=== PATIENT | male | born 1935 | race African-American/Black ===

== ENCOUNTER → 2018-02-02 | Outpatient (CLI) | payer MEDICARE, MEDICAID ==
[~2018-02-02] MED LIST: CLOP75TA33 PO; FOLI1TAB3 PO; LATA2.5D2 OP; LOSA1TAB40 PO; SIMV20TA6 PO; TIMO15DR12 OP
== END | disposition home or self-care (01) ==
LOC: US 08:04
PROVIDERS: ATTEND Specialist
DX: K76.0 Fatty (change of) liver, not elsewhere classified (principal); K80.20 Calculus of gallbladder without cholecystitis without obstruction; I12.9 Hypertensive chronic kidney disease with stage 1 through stage 4 chronic kidney disease, or unspecified chronic kidney disease; N18.2 Chronic kidney disease, stage 2 (mild); E78.5 Hyperlipidemia, unspecified
CPT/HCPCS: 76705

== ENCOUNTER → 2018-10-20 | Outpatient (CLI) | payer MEDICARE, MEDICAID | END | disposition home or self-care (01) | LOC: RAD 13:42 | PROVIDERS: ATTEND Specialist | DX: R06.02 Shortness of breath (principal) | CPT/HCPCS: 71046 ==

== ENCOUNTER 2019-02-25 07:17 | Inpatient (IN) | payer MEDICARE, MEDICAID ==
[~2019-02-25] VITALS: Ht 188 cm; Wt 78.0 kg
[2019-02-25] VITALS (36 sets, daily range): BP systolic 95–146; BP diastolic 35–71
[2019-02-25 10:50] LABS: BASOPHILS % 0.3 % (0.0-2.0); EOSINOPHILS % 0.8 % (0.0-5.0); HEMATOCRIT. 34.6 % (42.0-52.0); HEMOGLOBIN. 11.9 g/dL (14.0-18.0); LYMPHOCYTES % 19.1 % (20.0-50.0); MEAN CORPUSCULAR HEMOGLOBIN 36.5 pg (28.0-32.0); MEAN PLATELET VOLUME 10.1 fl (7.4-10.4); MONOCYTES % 13.7 % (2.0-8.0); NEUTROPHILS % 66.1 % (40.0-76.0); PLATELET 74 x1000/uL (130-400); RED BLOOD CELL COUNT 3.27 mill/uL (4.7-6.1); RED CELL DISTRIBUTION WIDTH 13.8 % (11.6-14.6)
[2019-02-25 10:56] LABS: INR 1.1
[2019-02-25 11:05] LABS: CHLORIDE 107 mEq/L (98-107)
[2019-02-25 11:09] LABS: CLARITY URINE CLEAR (CLEAR); COLOR URINE DARK YELLOW (YELLOW); KETONES URINE TRACE (NEGATIVE); LEUKOCYTE ESTERASE URINE TRACE (NEGATIVE); NITRITE URINE NEGATIVE (NEGATIVE); OCCULT BLOOD URINE NEGATIVE (NEGATIVE); PROTEIN URINE NEGATIVE (NEGATIVE); SPECIFIC GRAVITY URINE 1.015 (1.005-1.030)
[2019-02-25] MEDS ORDERED: NORMAL SALINE 0.9% 10 ML SYR ONE (11:38)
[2019-02-25] MEDS ORDERED: THROMBIN (BOVINE) 5000 UNITS/VIAL TOP ONE (11:38)
[2019-02-25] MEDS ORDERED: LACTATED RINGERS 3,000 ML IV ONE (11:38)
[2019-02-25] MEDS ORDERED: LIDOCAINE HCL/EPINEPHRINE 1%-EPI 1:100,000 20 ML VIAL ONE (11:38)
[2019-02-25] MEDS ORDERED: BACITRACIN 50,000 UNITS/VIAL ONE (11:38)
[2019-02-25] MEDS ORDERED: MANNITOL 12.5G (25%) VIAL 50ML IV ONE (11:45)
[2019-02-25] MEDS ORDERED: DEXT 5%/LACTATED RINGERS 1,000 ML IV SCH (11:45)
[2019-02-25] MEDS ORDERED: SODIUM CHLORIDE 0.9% 10ML VIAL ONE ×2 (11:58→13:07)
[2019-02-25] MEDS ORDERED: SUCCINYLCHOLINE CHLORIDE 200MG/10ML IV ONE (11:58)
[2019-02-25] MEDS ORDERED: LEVETIRACETAM 500MG PREMIX 100 ML IV SCH ×2 (12:00→17:00)
[2019-02-25] MEDS ORDERED: NICARDIPINE 100 MG in SODIUM CHLORIDE 0.9% 60 ML IV PRN ×4 (12:00)
[2019-02-25] MEDS: DEXAMETHASONE 4MG/ML 1ML VIAL IV SCH ×3 (12:00→23:20)
[2019-02-25] MEDS ORDERED: ROCURONIUM BROMIDE 10MG/ML VIAL 5ML IV ONE (12:00)
[2019-02-25] MEDS ORDERED: FENTANYL CITRATE/PF 50MCG/ML 2ML VIAL ONE (12:01)
[2019-02-25] MEDS ORDERED: MIDAZOLAM HCL 2 MG/2 ML VIAL ONE (12:01)
[2019-02-25] MEDS ORDERED: CEFAZOLIN SODIUM 1000MG/VIAL ONE (12:01)
[2019-02-25] MEDS ORDERED: FUROSEMIDE 40MG/4ML VIAL ONE (12:02)
[2019-02-25] MEDS ORDERED: BACITRACIN 15GM TUBE TOP ONE (12:02)
[2019-02-25] MEDS ORDERED: MANNITOL 20% 0 ML IV ONE (12:02)
[2019-02-25] MEDS ORDERED: ESMOLOL HCL 10MG/ML 10ML VIAL IV ONE (12:05)
[2019-02-25] MEDS ORDERED: POVIDONE-IODINE OINT 28.4GM TOP ONE (12:06)
[2019-02-25] MEDS ORDERED: PROPOFOL 200MG/20ML VIAL IV ONE ×2 (12:28→13:32)
[2019-02-25] MEDS ORDERED: ONDANSETRON HCL 4MG/2ML INJ ONE (13:06)
[2019-02-25] MEDS ORDERED: EPHEDRINE SULFATE 50MG/ML VIAL ONE (13:06)
[2019-02-25] MEDS ORDERED: PHENYLEPHRINE HCL 10 MG/ML 1ML (IV VIAL) IV ONE (13:07)
[2019-02-25] MEDS ORDERED: NEOSTIGMINE METHYLSULFATE 1MG/ML 10 ML VIAL ONE (13:46)
[2019-02-25] MEDS ORDERED: GLYCOPYRROLATE 0.2 MG/ML 2ML VIAL ONE (13:46)
[2019-02-25] MEDS: DEXT 5%/LACTATED RINGERS 1,000 ML IV SCH (15:03)
[2019-02-25] MEDS: NICARDIPINE 100 MG in SODIUM CHLORIDE 0.9% 60 ML IV PRN (15:04)
[2019-02-25] MEDS: LEVETIRACETAM 500 MG in SODIUM CHLORIDE 0.9% 100 ML IV SCH (20:01)
[2019-02-25] MEDS: CEFAZOLIN 1000MG PREMIX 50 ML IV SCH (21:07)
[2019-02-25] MEDS ORDERED: CEFAZOLIN SODIUM 1000MG/VIAL IV SCH (22:00)
[2019-02-26] VITALS (117 sets, daily range): BP systolic 85–148; BP diastolic 32–96
[2019-02-26] MEDS: CEFAZOLIN 1000MG PREMIX 50 ML IV SCH ×3 (05:50→21:53)
[2019-02-26] MEDS: DEXAMETHASONE 4MG/ML 1ML VIAL IV SCH ×2 (05:52→12:24)
[2019-02-26] MEDS: LEVETIRACETAM 500 MG in SODIUM CHLORIDE 0.9% 100 ML IV SCH (08:11)
[2019-02-26] MEDS: MORPHINE SULFATE 2 MG/ML CPJ (NOT FOR IM USE) IV PRN ×2 (08:12→15:43)
[2019-02-26] MEDS: AMLODIPINE 2.5MG TABLET PO SCH ×2 (09:00→20:30)
[2019-02-26] MEDS ORDERED: BACITRACIN 15GM TUBE TOP ONE (11:45)
[2019-02-26] MEDS: NICARDIPINE 100 MG in SODIUM CHLORIDE 0.9% 60 ML IV PRN (18:57)
[2019-02-26] MEDS: FAMOTIDINE 20MG/2ML VIAL IV SCH (18:57)
[2019-02-26 19:22] LABS: HEMATOCRIT. 37.2 % (42.0-52.0); HEMOGLOBIN. 12.6 g/dL (14.0-18.0); MEAN CORPUSCULAR HEMOGLOBIN 35.9 pg (28.0-32.0); MEAN CORPUSCULAR VOLUME 106.4 fL (80.0-94.0); MEAN PLATELET VOLUME 10.7 fl (7.4-10.4); PLATELET 79 x1000/uL (130-400); RED BLOOD CELL COUNT 3.49 mill/uL (4.7-6.1)
[2019-02-26 19:30] LABS: CHLORIDE 112 mEq/L (98-107)
[2019-02-26 20:06] LABS: PLATELET ESTIMATE DECREASED
[2019-02-26] MEDS: LEVETIRACETAM 750 MG in SODIUM CHLORIDE 0.9% 100 ML IV SCH (20:30)
[2019-02-27] VITALS (93 sets, daily range): BP systolic 72–146; BP diastolic 14–106
[2019-02-27 05:00] LABS: HEMATOCRIT. 37.7 % (42.0-52.0); HEMOGLOBIN. 12.6 g/dL (14.0-18.0); MEAN CORPUSCULAR HEMOGLOBIN 35.8 pg (28.0-32.0); MEAN CORPUSCULAR VOLUME 106.8 fL (80.0-94.0); MEAN PLATELET VOLUME 9.7 fl (7.4-10.4); PLATELET 111 x1000/uL (130-400); RED BLOOD CELL COUNT 3.53 mill/uL (4.7-6.1); RED CELL DISTRIBUTION WIDTH 13.9 % (11.6-14.6)
[2019-02-27 05:07] LABS: CHLORIDE 115 mEq/L (98-107)
[2019-02-27] MEDS: CEFAZOLIN 1000MG PREMIX 50 ML IV SCH ×3 (05:46→22:53)
[2019-02-27] MEDS: DEXT 5%/LACTATED RINGERS 1,000 ML IV SCH (05:47)
[2019-02-27] MEDS: NICARDIPINE 100 MG in SODIUM CHLORIDE 0.9% 60 ML IV PRN (05:47)
[2019-02-27 07:18] LABS: PLATELET ESTIMATE SLIGHTLY DECREASED
[2019-02-27] MEDS: AMLODIPINE 2.5MG TABLET PO SCH ×2 (08:42→20:46)
[2019-02-27] MEDS: FAMOTIDINE 20MG/2ML VIAL IV SCH (09:06)
[2019-02-27] MEDS: LEVETIRACETAM 750 MG in SODIUM CHLORIDE 0.9% 100 ML IV SCH ×2 (09:07→20:45)
[2019-02-27] MEDS ORDERED: CYAN50003 PO (09:48)
[2019-02-27] MEDS ORDERED: PROP15DR56 OP (09:48)
[2019-02-27] MEDS ORDERED: ASCO-339 PO (09:48)
[2019-02-27] MEDS ORDERED: ASPI-1158 PO (09:48)
[2019-02-27] MEDS ORDERED: CALC-1121 PO (09:48)
[2019-02-27] MEDS ORDERED: MAGN200T4 PO (09:48)
[2019-02-27] MEDS ORDERED: POTA-79 PO (09:48)
[2019-02-27] MEDS ORDERED: FURO40TA5 PO (09:48)
[2019-02-27] MEDS: METOPROLOL TARTRATE 25MG TABLET PO SCH ×2 (10:00→20:46)
[2019-02-27] MEDS: MORPHINE SULFATE 2 MG/ML CPJ (NOT FOR IM USE) IV PRN ×2 (11:34→15:46)
[2019-02-27] MEDS: DIPHENHYDRAMINE 50MG/ML VIAL IV PRN (16:39)
[2019-02-28] VITALS (93 sets, daily range): BP systolic 84–143; BP diastolic 40–102
[2019-02-28] MEDS: NICARDIPINE 100 MG in SODIUM CHLORIDE 0.9% 60 ML IV PRN (01:32)
[2019-02-28] MEDS: MORPHINE SULFATE 2 MG/ML CPJ (NOT FOR IM USE) IV PRN ×3 (02:35→18:10)
[2019-02-28 04:46] LABS: BASOPHILS % 0.1 % (0.0-2.0); HEMATOCRIT. 37.2 % (42.0-52.0); HEMOGLOBIN. 12.5 g/dL (14.0-18.0); LYMPHOCYTES % 9.9 % (20.0-50.0); MEAN CORPUSCULAR HEMOGLOBIN 35.6 pg (28.0-32.0); MEAN CORPUSCULAR VOLUME 106.6 fL (80.0-94.0); MEAN PLATELET VOLUME 9.2 fl (7.4-10.4); MONOCYTES % 9.1 % (2.0-8.0); NEUTROPHILS % 80.9 % (40.0-76.0); PLATELET 100 x1000/uL (130-400); RED BLOOD CELL COUNT 3.49 mill/uL (4.7-6.1); RED CELL DISTRIBUTION WIDTH 13.8 % (11.6-14.6)
[2019-02-28 04:58] LABS: CHLORIDE 118 mEq/L (98-107)
[2019-02-28 05:08] LABS: PHOSPHORUS 2.2 mg/dL (2.5-4.9)
[2019-02-28] MEDS: DEXT 5%/LACTATED RINGERS 1,000 ML IV SCH (06:39)
[2019-02-28] MEDS: LEVETIRACETAM 750 MG in SODIUM CHLORIDE 0.9% 100 ML IV SCH ×2 (09:43→21:45)
[2019-02-28] MEDS: AMLODIPINE 2.5MG TABLET PO SCH ×2 (10:27→21:45)
[2019-02-28] MEDS: METOPROLOL TARTRATE 25MG TABLET PO SCH ×2 (10:27→21:45)
[2019-02-28] MEDS: FAMOTIDINE 20MG/2ML VIAL IV SCH (10:27)
[2019-02-28] MEDS ORDERED: POTASSIUM CHLORIDE 20MEQ/PACKET PO NR (10:45)
[2019-02-28] MEDS ORDERED: ONDANSETRON HCL 4MG/2ML INJ IV PRN ×2 (20:45→23:30)
[2019-02-28 22:47] LABS: CHLORIDE 120 mEq/L (98-107)
[2019-02-28 23:04] LABS: HEMATOCRIT. 39.3 % (42.0-52.0); HEMOGLOBIN. 13.4 g/dL (14.0-18.0); MEAN CORPUSCULAR HEMOGLOBIN 35.7 pg (28.0-32.0); MEAN CORPUSCULAR VOLUME 104.8 fL (80.0-94.0); MEAN PLATELET VOLUME 8.8 fl (7.4-10.4); PLATELET 106 x1000/uL (130-400); RED BLOOD CELL COUNT 3.75 mill/uL (4.7-6.1); RED CELL DISTRIBUTION WIDTH 13.8 % (11.6-14.6)
[2019-02-28 23:16] LABS: PLATELET ESTIMATE DECREASED
[2019-03-01] VITALS (92 sets, daily range): BP systolic 66–175; BP diastolic 25–90
[2019-03-01] MEDS: MORPHINE SULFATE 2 MG/ML CPJ (NOT FOR IM USE) IV PRN ×3 (00:08→13:10)
[2019-03-01] MEDS: NICARDIPINE 100 MG in SODIUM CHLORIDE 0.9% 60 ML IV PRN (03:49)
[2019-03-01 04:41] LABS: BASOPHILS % 0.1 % (0.0-2.0); HEMATOCRIT. 36.9 % (42.0-52.0); HEMOGLOBIN. 12.7 g/dL (14.0-18.0); LYMPHOCYTES % 7.5 % (20.0-50.0); MEAN CORPUSCULAR HEMOGLOBIN 35.8 pg (28.0-32.0); MEAN CORPUSCULAR VOLUME 104.3 fL (80.0-94.0); MEAN PLATELET VOLUME 8.7 fl (7.4-10.4); MONOCYTES % 12.1 % (2.0-8.0); NEUTROPHILS % 80.3 % (40.0-76.0); PLATELET 91 x1000/uL (130-400); RED BLOOD CELL COUNT 3.54 mill/uL (4.7-6.1); RED CELL DISTRIBUTION WIDTH 13.6 % (11.6-14.6)
[2019-03-01 04:49] LABS: CHLORIDE 119 mEq/L (98-107)
[2019-03-01] MEDS: FAMOTIDINE 20MG/2ML VIAL IV SCH (08:40)
[2019-03-01] MEDS: DEXT 5%/LACTATED RINGERS 1,000 ML IV SCH ×2 (08:40→22:53)
[2019-03-01] MEDS: AMLODIPINE 2.5MG TABLET PO SCH ×2 (09:00→21:00)
[2019-03-01] MEDS ORDERED: SODIUM CHLORIDE 0.9% IV SCH (09:00)
[2019-03-01] MEDS ORDERED: LEVETIRACETAM IV SCH (09:00)
[2019-03-01] MEDS: METOPROLOL TARTRATE 25MG TABLET PO SCH ×2 (09:00→21:00)
[2019-03-01 10:14] LABS: PHOSPHORUS 2.3 mg/dL (2.5-4.9)
[2019-03-01 17:45] LABS: CLARITY URINE TURBID (CLEAR); COLOR URINE RED (YELLOW); KETONES URINE 2+ (NEGATIVE); LEUKOCYTE ESTERASE URINE 3+ (NEGATIVE); NITRITE URINE POSITIVE (NEGATIVE); OCCULT BLOOD URINE 3+ (NEGATIVE); PROTEIN URINE 3+ (NEGATIVE); SPECIFIC GRAVITY URINE 1.016 (1.005-1.030)
[2019-03-02] VITALS (92 sets, daily range): BP systolic 103–145; BP diastolic 37–95
[2019-03-02 05:10] LABS: BASOPHILS % 0.1 % (0.0-2.0); EOSINOPHILS % 0.2 % (0.0-5.0); HEMATOCRIT. 34.2 % (42.0-52.0); HEMOGLOBIN. 11.6 g/dL (14.0-18.0); LYMPHOCYTES % 8.9 % (20.0-50.0); MEAN CORPUSCULAR HEMOGLOBIN 35.7 pg (28.0-32.0); MEAN CORPUSCULAR VOLUME 105.2 fL (80.0-94.0); MEAN PLATELET VOLUME 9.5 fl (7.4-10.4); MONOCYTES % 10.4 % (2.0-8.0); NEUTROPHILS % 80.4 % (40.0-76.0); PLATELET 86 x1000/uL (130-400); RED BLOOD CELL COUNT 3.25 mill/uL (4.7-6.1); RED CELL DISTRIBUTION WIDTH 13.5 % (11.6-14.6)
[2019-03-02 05:25] LABS: PHOSPHORUS 2.4 mg/dL (2.5-4.9)
[2019-03-02] MEDS: NICARDIPINE 100 MG in SODIUM CHLORIDE 0.9% 60 ML IV PRN ×2 (05:41→17:17)
[2019-03-02 05:46] LABS: CHLORIDE 124 mEq/L (98-107)
[2019-03-02] MEDS ORDERED: DIATR MEGLU/DIATRIZOATE SOLN 30ML PO SCH (07:30)
[2019-03-02] MEDS: DEXT 5%/0.45% NACL 1000ML 1,000 ML IV SCH (08:18)
[2019-03-02] MEDS ORDERED: POTASSIUM PHOS,M-BASIC-D-BASIC 10 MMOL in DEXT 5% WATER 246.6667 ML IV SCH (09:00)
[2019-03-02] MEDS ORDERED: LIDOCAINE HCL 2% JELLY 5ML MM NR (09:00)
[2019-03-02] MEDS: FAMOTIDINE 20MG/2ML VIAL IV SCH (09:22)
[2019-03-02] MEDS: MORPHINE SULFATE 2 MG/ML CPJ (NOT FOR IM USE) IV PRN (13:11)
[2019-03-02 23:35] LABS: CHLORIDE 123 mEq/L (98-107)
[2019-03-03] VITALS (94 sets, daily range): BP systolic 97–147; BP diastolic 24–120
[2019-03-03 04:38] LABS: BASOPHILS % 0.2 % (0.0-2.0); EOSINOPHILS % 0.6 % (0.0-5.0); HEMATOCRIT. 32.5 % (42.0-52.0); HEMOGLOBIN. 11.2 g/dL (14.0-18.0); LYMPHOCYTES % 8.3 % (20.0-50.0); MEAN CORPUSCULAR HEMOGLOBIN 36.2 pg (28.0-32.0); MEAN CORPUSCULAR VOLUME 104.7 fL (80.0-94.0); MEAN PLATELET VOLUME 9.7 fl (7.4-10.4); MONOCYTES % 8.5 % (2.0-8.0); NEUTROPHILS % 82.4 % (40.0-76.0); PLATELET 96 x1000/uL (130-400); RED BLOOD CELL COUNT 3.11 mill/uL (4.7-6.1); RED CELL DISTRIBUTION WIDTH 13.7 % (11.6-14.6)
[2019-03-03 04:57] LABS: PHOSPHORUS 2.6 mg/dL (2.5-4.9)
[2019-03-03 05:06] LABS: CHLORIDE 122 mEq/L (98-107)
[2019-03-03] MEDS: DEXT 5%/0.45% NACL 1000ML 1,000 ML IV SCH ×2 (05:22→22:11)
[2019-03-03] MEDS: FAMOTIDINE 20MG/2ML VIAL IV SCH (09:18)
[2019-03-03] MEDS ORDERED: KCL 20MEQ/100ML PREMIX 100 ML IV NR (10:00)
[2019-03-03] MEDS ORDERED: BISACODYL 10MG SUPP PR PRN (12:15)
[2019-03-03] MEDS: NICARDIPINE 100 MG in SODIUM CHLORIDE 0.9% 60 ML IV PRN (15:19)
[2019-03-03] MEDS ORDERED: POTASSIUM CHLORIDE 20MEQ/PACKET NG NR (16:00)
[2019-03-03] MEDS ORDERED: KCL 20MEQ/100ML PREMIX 100 ML IV SCH (18:00)
[2019-03-03] MEDS: METOCLOPRAMIDE HCL 10MG/2ML VIAL IV SCH ×2 (18:06→23:10)
[2019-03-04] VITALS (85 sets, daily range): BP systolic 99–171; BP diastolic 31–129
[2019-03-04] MEDS: MORPHINE SULFATE 2 MG/ML CPJ (NOT FOR IM USE) IV PRN ×2 (01:19→13:39)
[2019-03-04] MEDS: METOCLOPRAMIDE HCL 10MG/2ML VIAL IV SCH ×3 (05:09→18:55)
[2019-03-04 08:20] LABS: BASOPHILS % 0.2 % (0.0-2.0); EOSINOPHILS % 0.6 % (0.0-5.0); HEMATOCRIT. 34.6 % (42.0-52.0); HEMOGLOBIN. 11.7 g/dL (14.0-18.0); LYMPHOCYTES % 7.7 % (20.0-50.0); MEAN CORPUSCULAR HEMOGLOBIN 35.3 pg (28.0-32.0); MEAN CORPUSCULAR VOLUME 104.6 fL (80.0-94.0); MEAN PLATELET VOLUME 9.4 fl (7.4-10.4); MONOCYTES % 9.9 % (2.0-8.0); NEUTROPHILS % 81.6 % (40.0-76.0); PLATELET 95 x1000/uL (130-400); RED BLOOD CELL COUNT 3.31 mill/uL (4.7-6.1)
[2019-03-04 08:31] LABS: CHLORIDE 123 mEq/L (98-107)
[2019-03-04 08:41] LABS: PHOSPHORUS 2.7 mg/dL (2.5-4.9)
[2019-03-04] MEDS: FAMOTIDINE 20MG/2ML VIAL IV SCH (08:53)
[2019-03-04] MEDS ORDERED: KCL 20MEQ/100ML PREMIX 100 ML IV NR (10:00)
[2019-03-04] MEDS ORDERED: LIDOCAINE HCL 1% 20ML VIAL (Pyxis) INJ ONE (12:33)
[2019-03-04] MEDS ORDERED: SODIUM BICARBONATE 4% (2.4MEQ) 5ML VIAL IV ONE (12:34)
[2019-03-04] MEDS: DEXT 5%/0.45% NACL 1000ML 1,000 ML IV SCH (15:26)
[2019-03-04] MEDS: NICARDIPINE 100 MG in SODIUM CHLORIDE 0.9% 60 ML IV PRN (16:43)
[2019-03-04] MEDS ORDERED: KCL 20MEQ/100ML PREMIX 100 ML IV ONE (18:00)
[2019-03-05] VITALS (97 sets, daily range): BP systolic 67–183; BP diastolic 38–96
[2019-03-05] MEDS: METOCLOPRAMIDE HCL 10MG/2ML VIAL IV SCH ×5 (00:15→23:51)
[2019-03-05] MEDS: NICARDIPINE 100 MG in SODIUM CHLORIDE 0.9% 60 ML IV PRN ×2 (02:06→11:35)
[2019-03-05] MEDS: DEXT 5%/0.45% NACL 1000ML 1,000 ML IV SCH ×2 (03:15→23:51)
[2019-03-05 05:11] LABS: CHLORIDE 121 mEq/L (98-107)
[2019-03-05] MEDS: FAMOTIDINE 20MG/2ML VIAL IV SCH (09:47)
[2019-03-05 10:10] LABS: BASOPHILS % 0.1 % (0.0-2.0); HEMATOCRIT. 32.4 % (42.0-52.0); LYMPHOCYTES % 7.9 % (20.0-50.0); MEAN CORPUSCULAR VOLUME 103.3 fL (80.0-94.0); MEAN PLATELET VOLUME 8.9 fl (7.4-10.4); MONOCYTES % 9.2 % (2.0-8.0); NEUTROPHILS % 81.8 % (40.0-76.0); PLATELET 94 x1000/uL (130-400); RED BLOOD CELL COUNT 3.13 mill/uL (4.7-6.1); RED CELL DISTRIBUTION WIDTH 14.2 % (11.6-14.6)
[2019-03-05] MEDS ORDERED: CLONIDINE HCL 0.1MG/24HR PATCH TD SCH (11:00)
[2019-03-05] MEDS ORDERED: ONDANSETRON INJ 8 MG in DEXTROSE 5% WATER 50 ML IV PRN (11:30)
[2019-03-06] VITALS (92 sets, daily range): BP systolic 91–146; BP diastolic 56–109
[2019-03-06] MEDS: NICARDIPINE 100 MG in SODIUM CHLORIDE 0.9% 60 ML IV PRN (04:40)
[2019-03-06 04:41] LABS: BASOPHILS % 0.3 % (0.0-2.0); EOSINOPHILS % 1.2 % (0.0-5.0); HEMATOCRIT. 32.3 % (42.0-52.0); HEMOGLOBIN. 11.1 g/dL (14.0-18.0); LYMPHOCYTES % 10.7 % (20.0-50.0); MEAN CORPUSCULAR HEMOGLOBIN 35.5 pg (28.0-32.0); MEAN CORPUSCULAR VOLUME 103.2 fL (80.0-94.0); MEAN PLATELET VOLUME 10.3 fl (7.4-10.4); MONOCYTES % 9.6 % (2.0-8.0); NEUTROPHILS % 78.2 % (40.0-76.0); PLATELET 67 x1000/uL (130-400); RED BLOOD CELL COUNT 3.13 mill/uL (4.7-6.1); RED CELL DISTRIBUTION WIDTH 14.1 % (11.6-14.6)
[2019-03-06] MEDS: METOCLOPRAMIDE HCL 10MG/2ML VIAL IV SCH ×4 (05:58→23:48)
[2019-03-06 06:29] LABS: CHLORIDE 120 mEq/L (98-107)
[2019-03-06] MEDS: FAMOTIDINE 20MG/2ML VIAL IV SCH (08:38)
[2019-03-06] MEDS ORDERED: KCL 20MEQ/100ML PREMIX 100 ML IV SCH (11:00)
[2019-03-06] MEDS: DEXT 5%/0.45% NACL 1000ML 1,000 ML IV SCH (15:07)
[2019-03-06] MEDS ORDERED: BLOOD SUGAR DIAGNOSTIC STRIP TEST SCH (18:00)
[2019-03-06] MEDS ORDERED: TOTAL PARENTERAL NUTRITION 1,300 ML IV SCH (21:00)
[2019-03-06] MEDS: BLOOD SUGAR DIAGNOSTIC STRIP TEST SCH (23:47)
[2019-03-06] MEDS: INSULIN LISPRO 100 UNITS/ML SUBCUT SCH (23:48)
[2019-03-07] VITALS (98 sets, daily range): BP systolic 63–162; BP diastolic 25–127
[2019-03-07] MEDS ORDERED: DEXTROSE 50% WATER 50ML SYRINGE IV PRN
[2019-03-07] MEDS: DEXT 5%/0.45% NACL 1000ML 1,000 ML IV SCH (04:07)
[2019-03-07 04:49] LABS: BASOPHILS % 0.2 % (0.0-2.0); EOSINOPHILS % 1.1 % (0.0-5.0); HEMATOCRIT. 33.5 % (42.0-52.0); HEMOGLOBIN. 11.3 g/dL (14.0-18.0); LYMPHOCYTES % 8.2 % (20.0-50.0); MEAN CORPUSCULAR VOLUME 103.3 fL (80.0-94.0); MEAN PLATELET VOLUME 9.8 fl (7.4-10.4); MONOCYTES % 10.3 % (2.0-8.0); NEUTROPHILS % 80.2 % (40.0-76.0); PLATELET 94 x1000/uL (130-400); RED BLOOD CELL COUNT 3.24 mill/uL (4.7-6.1); RED CELL DISTRIBUTION WIDTH 13.8 % (11.6-14.6)
[2019-03-07 05:01] LABS: CHLORIDE 116 mEq/L (98-107)
[2019-03-07 05:09] LABS: PHOSPHORUS 1.9 mg/dL (2.5-4.9)
[2019-03-07] MEDS: INSULIN LISPRO 100 UNITS/ML SUBCUT SCH ×4 (06:00→23:42)
[2019-03-07] MEDS: BLOOD SUGAR DIAGNOSTIC STRIP TEST SCH ×4 (06:00→23:42)
[2019-03-07] MEDS: METOCLOPRAMIDE HCL 10MG/2ML VIAL IV SCH ×4 (07:05→23:42)
[2019-03-07] MEDS: NICARDIPINE 100 MG in SODIUM CHLORIDE 0.9% 60 ML IV PRN ×2 (07:10→17:52)
[2019-03-07] MEDS ORDERED: PHYTONADIONE 10MG/ML AMP SUBCUT SCH (09:00)
[2019-03-07] MEDS: FAMOTIDINE 20MG/2ML VIAL IV SCH (09:07)
[2019-03-07] MEDS ORDERED: KCL 20MEQ/100ML PREMIX 100 ML IV NR (13:00)
[2019-03-07] MEDS ORDERED: TOTAL PARENTERAL NUTRITION 1,700 ML IV SCH (21:00)
[2019-03-07] MEDS: FAT EMULSIONS 500 ML IV SCH (21:05)
[2019-03-08] VITALS (95 sets, daily range): BP systolic 53–178; BP diastolic 31–88
[2019-03-08] MEDS: NICARDIPINE 100 MG in SODIUM CHLORIDE 0.9% 60 ML IV PRN ×2 (03:13→23:14)
[2019-03-08] MEDS: METOCLOPRAMIDE HCL 10MG/2ML VIAL IV SCH ×4 (06:12→23:11)
[2019-03-08] MEDS: BLOOD SUGAR DIAGNOSTIC STRIP TEST SCH ×4 (06:13→23:14)
[2019-03-08] MEDS: INSULIN LISPRO 100 UNITS/ML SUBCUT SCH ×4 (06:13→23:14)
[2019-03-08] MEDS ORDERED: CARVEDILOL 3.125 MG TABLET PO SCH (09:00)
[2019-03-08] MEDS: METOPROLOL TARTRATE 25MG TABLET PO SCH ×3 (09:15→20:11)
[2019-03-08 09:26] LABS: BG BASE EXCESS -2.2 mmol/L (-2.0-2.0); BG CARBOXYHEMOGLOBIN 0.3 % (0.5-1.5); BG DEOXYHEMOGLOBIN 11.9 % (0.0-5.0); BG FRACTION INSPIRED OXYGEN 32; BG HCO3 ACT 20.5 mmol/L (22.0-26.0); BG METHEMOGLOBIN 0.3 % (0.0-1.5); BG OXYHEMOGLOBIN 87.5 % (94.0-97.0); BG PCO2 28.4 mmHg (35.0-45.0); BG PH 7.476 (7.350-7.450); BG PO2 56.1 mmHg (75.0-100.0); BG SAMPLE SITE RIGHT RADIAL; BG TOTAL HEMOGLOBIN 10.5 g/dL (12.0-18.0); BG VENT MODE NASAL CANNULA
[2019-03-08 11:12] LABS: BG CARBOXYHEMOGLOBIN 0.3 % (0.5-1.5); BG FRACTION INSPIRED OXYGEN 36; BG METHEMOGLOBIN 0.2 % (0.0-1.5); BG OXYGEN SATURATION 89.9 % (92.0-98.5); BG OXYHEMOGLOBIN 89.5 % (94.0-97.0); BG PCO2 32.2 mmHg (35.0-45.0); BG PO2 57.8 mmHg (75.0-100.0); BG SAMPLE SITE RIGHT RADIAL; BG TOTAL HEMOGLOBIN 10.4 g/dL (12.0-18.0); BG VENT MODE NASAL CANNULA
[2019-03-08] MEDS ORDERED: POTASSIUM CHLORIDE 20MEQ/PACKET PO NR (11:45)
[2019-03-08] MEDS: FAMOTIDINE 20MG/2ML VIAL IV SCH (13:07)
[2019-03-08 13:33] LABS: CHLORIDE 118 mEq/L (98-107)
[2019-03-08 13:46] LABS: HEMATOCRIT. 30.9 % (42.0-52.0); HEMOGLOBIN. 10.5 g/dL (14.0-18.0); MEAN CORPUSCULAR HEMOGLOBIN 34.9 pg (28.0-32.0); MEAN CORPUSCULAR VOLUME 102.7 fL (80.0-94.0); MEAN PLATELET VOLUME 10.8 fl (7.4-10.4); PLATELET 67 x1000/uL (130-400); RED BLOOD CELL COUNT 3.01 mill/uL (4.7-6.1); RED CELL DISTRIBUTION WIDTH 13.8 % (11.6-14.6)
[2019-03-08 14:02] LABS: PLATELET ESTIMATE DECREASED
[2019-03-08 15:05] LABS: BG BASE EXCESS -1.1 mmol/L (-2.0-2.0); BG CARBOXYHEMOGLOBIN 0.3 % (0.5-1.5); BG DEOXYHEMOGLOBIN 9.9 % (0.0-5.0); BG FRACTION INSPIRED OXYGEN 50; BG HCO3 ACT 22.3 mmol/L (22.0-26.0); BG METHEMOGLOBIN 0.3 % (0.0-1.5); BG OXYHEMOGLOBIN 89.5 % (94.0-97.0); BG PCO2 32.5 mmHg (35.0-45.0); BG PH 7.454 (7.350-7.450); BG PO2 59.4 mmHg (75.0-100.0); BG SAMPLE SITE RIGHT RADIAL; BG TOTAL HEMOGLOBIN 10.3 g/dL (12.0-18.0); BG VENT MODE MASK - VENTI
[2019-03-08] MEDS: IPRATROPIUM/ALBUTEROL 0.5-3(2.5)MG/3ML NEB HHN SCH ×2 (16:46→20:14)
[2019-03-08] MEDS: CEFTRIAXONE 1 G PREMIX 50 ML IV SCH (19:55)
[2019-03-08] MEDS: METHYLPREDNISOLONE SOD SUCC 40 MG/ML VIAL IV SCH (19:55)
[2019-03-08] MEDS ORDERED: INSULIN LISPRO 100 UNITS/ML SUBCUT SCH (20:00)
[2019-03-08] MEDS: TOTAL PARENTERAL NUTRITION 1,700 ML IV SCH (20:11)
[2019-03-08] MEDS: LEVOFLOXACIN 500MG PREMIX 100 ML IV SCH (20:11)
[2019-03-09] VITALS (99 sets, daily range): BP systolic 65–133; BP diastolic 25–99
[2019-03-09] MEDS: IPRATROPIUM/ALBUTEROL 0.5-3(2.5)MG/3ML NEB HHN SCH ×6 (00:21→19:50)
[2019-03-09] MEDS: METHYLPREDNISOLONE SOD SUCC 40 MG/ML VIAL IV SCH ×3 (04:02→19:39)
[2019-03-09 05:50] LABS: CHLORIDE 118 mEq/L (98-107)
[2019-03-09 05:56] LABS: HEMATOCRIT. 28.6 % (42.0-52.0); HEMOGLOBIN. 9.7 g/dL (14.0-18.0); MEAN CORPUSCULAR HEMOGLOBIN 35.1 pg (28.0-32.0); MEAN CORPUSCULAR VOLUME 103.1 fL (80.0-94.0); PLATELET 67 x1000/uL (130-400); RED BLOOD CELL COUNT 2.77 mill/uL (4.7-6.1)
[2019-03-09] MEDS: BLOOD SUGAR DIAGNOSTIC STRIP TEST SCH ×4 (05:57→23:42)
[2019-03-09] MEDS: METOCLOPRAMIDE HCL 10MG/2ML VIAL IV SCH ×4 (05:59→23:42)
[2019-03-09] MEDS: INSULIN LISPRO 100 UNITS/ML SUBCUT SCH ×4 (06:00→23:42)
[2019-03-09] MEDS: FAMOTIDINE 20MG/2ML VIAL IV SCH (08:13)
[2019-03-09] MEDS: METOPROLOL TARTRATE 25MG TABLET PO SCH ×2 (08:14→20:15)
[2019-03-09 08:27] LABS: BG BASE EXCESS -3.6 mmol/L (-2.0-2.0); BG CARBOXYHEMOGLOBIN 0.3 % (0.5-1.5); BG DEOXYHEMOGLOBIN 6.2 % (0.0-5.0); BG FRACTION INSPIRED OXYGEN 50; BG HCO3 ACT 20.3 mmol/L (22.0-26.0); BG METHEMOGLOBIN 0.3 % (0.0-1.5); BG OXYGEN SATURATION 93.8 % (92.0-98.5); BG OXYHEMOGLOBIN 93.2 % (94.0-97.0); BG PCO2 32.2 mmHg (35.0-45.0); BG PH 7.417 (7.350-7.450); BG PO2 74.2 mmHg (75.0-100.0); BG SAMPLE SITE RIGHT RADIAL; BG TOTAL HEMOGLOBIN 9.9 g/dL (12.0-18.0); BG VENT MODE VAPOTHERM
[2019-03-09] MEDS ORDERED: FUROSEMIDE 20MG/2ML VIAL IVP SCH (12:00)
[2019-03-09 12:25] LABS: PLATELET ESTIMATE DECREASED
[2019-03-09] MEDS: CEFTRIAXONE 1 G PREMIX 50 ML IV SCH (19:39)
[2019-03-09] MEDS: LEVOFLOXACIN 500MG PREMIX 100 ML IV SCH (20:14)
[2019-03-09] MEDS: TOTAL PARENTERAL NUTRITION 1,700 ML IV SCH (20:16)
[2019-03-09] MEDS ORDERED: TOTAL PARENTERAL NUTRITION 1,700 ML IV SCH (21:00)
[2019-03-10] VITALS (85 sets, daily range): BP systolic 41–162; BP diastolic 18–111
[2019-03-10] MEDS: IPRATROPIUM/ALBUTEROL 0.5-3(2.5)MG/3ML NEB HHN SCH ×6 (00:46→20:25)
[2019-03-10] MEDS: METHYLPREDNISOLONE SOD SUCC 40 MG/ML VIAL IV SCH ×3 (03:58→21:27)
[2019-03-10] MEDS: INSULIN LISPRO 100 UNITS/ML SUBCUT SCH ×3 (05:11→18:10)
[2019-03-10] MEDS: BLOOD SUGAR DIAGNOSTIC STRIP TEST SCH ×3 (05:11→17:38)
[2019-03-10] MEDS: METOCLOPRAMIDE HCL 10MG/2ML VIAL IV SCH ×3 (05:11→17:07)
[2019-03-10 05:59] LABS: CHLORIDE 115 mEq/L (98-107)
[2019-03-10 06:00] LABS: HEMATOCRIT. 27.5 % (42.0-52.0); HEMOGLOBIN. 9.4 g/dL (14.0-18.0); MEAN CORPUSCULAR HEMOGLOBIN 34.9 pg (28.0-32.0); MEAN PLATELET VOLUME 10.8 fl (7.4-10.4); PLATELET 83 x1000/uL (130-400)
[2019-03-10] MEDS: FAMOTIDINE 20MG/2ML VIAL IV SCH (08:05)
[2019-03-10] MEDS: METOPROLOL TARTRATE 25MG TABLET PO SCH ×2 (08:05→21:00)
[2019-03-10 08:08] LABS: PLATELET ESTIMATE DECREASED
[2019-03-10] MEDS ORDERED: FUROSEMIDE 20MG/2ML VIAL IVP NR (08:15)
[2019-03-10 13:44] LABS: BG BASE EXCESS 0.4 mmol/L (-2.0-2.0); BG CARBOXYHEMOGLOBIN 0.3 % (0.5-1.5); BG DEOXYHEMOGLOBIN 8.5 % (0.0-5.0); BG FRACTION INSPIRED OXYGEN 40; BG HCO3 ACT 24.2 mmol/L (22.0-26.0); BG METHEMOGLOBIN 0.2 % (0.0-1.5); BG OXYGEN SATURATION 91.5 % (92.0-98.5); BG PCO2 35.9 mmHg (35.0-45.0); BG PH 7.447 (7.350-7.450); BG PO2 63.5 mmHg (75.0-100.0); BG SAMPLE SITE RIGHT RADIAL; BG TOTAL HEMOGLOBIN 10.4 g/dL (12.0-18.0); BG VENT MODE VAPOTHERM
[2019-03-10] MEDS: MORPHINE SULFATE 2 MG/ML CPJ (NOT FOR IM USE) IV PRN (18:28)
[2019-03-10] MEDS ORDERED: TOTAL PARENTERAL NUTRITION 1,700 ML IV SCH (21:00)
[2019-03-10] MEDS: CEFTRIAXONE 1 G PREMIX 50 ML IV SCH (21:23)
[2019-03-10] MEDS: FAT EMULSIONS 500 ML IV SCH (21:24)
[2019-03-10] MEDS: LEVOFLOXACIN 500MG PREMIX 100 ML IV SCH (21:25)
[2019-03-10] MEDS: DIPHENHYDRAMINE 50MG/ML VIAL IV PRN (21:58)
[2019-03-11] VITALS (69 sets, daily range): BP systolic 82–181; BP diastolic 17–122
[2019-03-11] MEDS: IPRATROPIUM/ALBUTEROL 0.5-3(2.5)MG/3ML NEB HHN SCH ×6 (00:05→20:11)
[2019-03-11] MEDS: BLOOD SUGAR DIAGNOSTIC STRIP TEST SCH ×5 (00:18→23:51)
[2019-03-11] MEDS: METOCLOPRAMIDE HCL 10MG/2ML VIAL IV SCH ×5 (00:24→23:55)
[2019-03-11] MEDS: MORPHINE SULFATE 2 MG/ML CPJ (NOT FOR IM USE) IV PRN (00:25)
[2019-03-11] MEDS: INSULIN LISPRO 100 UNITS/ML SUBCUT SCH ×5 (00:26→23:52)
[2019-03-11] MEDS: METHYLPREDNISOLONE SOD SUCC 40 MG/ML VIAL IV SCH ×3 (05:20→20:30)
[2019-03-11 05:36] LABS: HEMATOCRIT. 28.3 % (42.0-52.0); HEMOGLOBIN. 10.1 g/dL (14.0-18.0); MEAN CORPUSCULAR HEMOGLOBIN 36.5 pg (28.0-32.0); MEAN CORPUSCULAR VOLUME 102.3 fL (80.0-94.0); MEAN PLATELET VOLUME 10.6 fl (7.4-10.4); PLATELET 95 x1000/uL (130-400); RED BLOOD CELL COUNT 2.76 mill/uL (4.7-6.1)
[2019-03-11 05:39] LABS: CHLORIDE 112 mEq/L (98-107)
[2019-03-11 07:35] LABS: PLATELET ESTIMATE DECREASED
[2019-03-11] MEDS ORDERED: FUROSEMIDE 20MG/2ML VIAL IVP NR (09:00)
[2019-03-11] MEDS ORDERED: KCL 20MEQ/100ML PREMIX 100 ML IV NR (09:00)
[2019-03-11] MEDS: FAMOTIDINE 20MG/2ML VIAL IV SCH (09:06)
[2019-03-11] MEDS: METOPROLOL TARTRATE 25MG TABLET PO SCH ×2 (09:06→20:32)
[2019-03-11] MEDS: LOSARTAN POTASSIUM 50 MG TABLET PO SCH (11:00)
[2019-03-11] MEDS: AMLODIPINE 2.5MG TABLET PO SCH (20:30)
[2019-03-11] MEDS: CEFTRIAXONE 1 G PREMIX 50 ML IV SCH (20:30)
[2019-03-11] MEDS: LEVOFLOXACIN 500MG PREMIX 100 ML IV SCH (20:31)
[2019-03-11] MEDS ORDERED: TOTAL PARENTERAL NUTRITION 1,000 ML IV SCH (21:00)
[2019-03-12] VITALS (46 sets, daily range): BP systolic 33–137; BP diastolic 17–95
[2019-03-12] MEDS: IPRATROPIUM/ALBUTEROL 0.5-3(2.5)MG/3ML NEB HHN SCH ×6 (00:09→20:00)
[2019-03-12] MEDS: METHYLPREDNISOLONE SOD SUCC 40 MG/ML VIAL IV SCH ×2 (04:53→12:41)
[2019-03-12] MEDS: BLOOD SUGAR DIAGNOSTIC STRIP TEST SCH ×3 (05:11→21:11)
[2019-03-12] MEDS: INSULIN LISPRO 100 UNITS/ML SUBCUT SCH ×3 (05:11→21:00)
[2019-03-12] MEDS: METOCLOPRAMIDE HCL 10MG/2ML VIAL IV SCH ×4 (05:20→23:53)
[2019-03-12 05:29] LABS: CHLORIDE 111 mEq/L (98-107)
[2019-03-12 05:30] LABS: HEMATOCRIT. 29.8 % (42.0-52.0); HEMOGLOBIN. 10.1 g/dL (14.0-18.0); MEAN CORPUSCULAR HEMOGLOBIN 34.3 pg (28.0-32.0); MEAN CORPUSCULAR VOLUME 101.3 fL (80.0-94.0); MEAN PLATELET VOLUME 10.9 fl (7.4-10.4); PLATELET 93 x1000/uL (130-400); RED BLOOD CELL COUNT 2.94 mill/uL (4.7-6.1); RED CELL DISTRIBUTION WIDTH 13.8 % (11.6-14.6)
[2019-03-12] MEDS: LOSARTAN POTASSIUM 50 MG TABLET PO SCH (09:00)
[2019-03-12] MEDS: METOPROLOL TARTRATE 25MG TABLET PO SCH ×2 (09:00→21:11)
[2019-03-12] MEDS: AMLODIPINE 2.5MG TABLET PO SCH ×2 (09:00→21:11)
[2019-03-12] MEDS: FAMOTIDINE 20MG/2ML VIAL IV SCH (09:00)
[2019-03-12 09:34] LABS: PLATELET ESTIMATE DECREASED
[2019-03-12] MEDS: DIPHENHYDRAMINE 50MG/ML VIAL IV PRN ×2 (19:50→23:53)
[2019-03-12] MEDS: CEFTRIAXONE 1 G PREMIX 50 ML IV SCH (21:11)
[2019-03-12] MEDS: LEVOFLOXACIN 500MG PREMIX 100 ML IV SCH (22:20)
[2019-03-13] VITALS (43 sets, daily range): BP systolic 105–183; BP diastolic 28–123
[2019-03-13] MEDS: IPRATROPIUM/ALBUTEROL 0.5-3(2.5)MG/3ML NEB HHN SCH ×6 (00:01→20:33)
[2019-03-13] MEDS: MORPHINE SULFATE 2 MG/ML CPJ (NOT FOR IM USE) IV PRN (01:02)
[2019-03-13] MEDS: DIPHENHYDRAMINE 50MG/ML VIAL IV PRN ×3 (05:08→13:37)
[2019-03-13] MEDS: METOCLOPRAMIDE HCL 10MG/2ML VIAL IV SCH ×4 (05:58→23:59)
[2019-03-13] MEDS: BLOOD SUGAR DIAGNOSTIC STRIP TEST SCH ×4 (06:25→20:57)
[2019-03-13] MEDS: INSULIN LISPRO 100 UNITS/ML SUBCUT SCH ×4 (06:30→20:57)
[2019-03-13] MEDS: AMLODIPINE 2.5MG TABLET PO SCH ×2 (09:09→20:18)
[2019-03-13] MEDS: FAMOTIDINE 20MG/2ML VIAL IV SCH (09:10)
[2019-03-13] MEDS: METHYLPREDNISOLONE SOD SUCC 40 MG/ML VIAL IV SCH (09:10)
[2019-03-13] MEDS: LOSARTAN POTASSIUM 50 MG TABLET PO SCH (09:10)
[2019-03-13] MEDS: METOPROLOL TARTRATE 25MG TABLET PO SCH ×2 (09:10→20:19)
[2019-03-13 10:24] LABS: HEMATOCRIT. 31.5 % (42.0-52.0); HEMOGLOBIN. 10.7 g/dL (14.0-18.0); MEAN CORPUSCULAR HEMOGLOBIN 34.4 pg (28.0-32.0); MEAN CORPUSCULAR VOLUME 101.2 fL (80.0-94.0); MEAN PLATELET VOLUME 9.9 fl (7.4-10.4); PLATELET 87 x1000/uL (130-400); RED BLOOD CELL COUNT 3.12 mill/uL (4.7-6.1); RED CELL DISTRIBUTION WIDTH 14.1 % (11.6-14.6)
[2019-03-13 10:54] LABS: PLATELET ESTIMATE DECREASED
[2019-03-13] MEDS ORDERED: POTASSIUM CHLORIDE 20MEQ TABLET SR PO NR (15:00)
[2019-03-13] MEDS: CEFTRIAXONE 1 G PREMIX 50 ML IV SCH (20:17)
[2019-03-13] MEDS: LEVOFLOXACIN 500MG PREMIX 100 ML IV SCH (20:18)
[2019-03-14] VITALS (11 sets, daily range): BP systolic 87–132; BP diastolic 53–69
[2019-03-14] MEDS: IPRATROPIUM/ALBUTEROL 0.5-3(2.5)MG/3ML NEB HHN SCH ×6 (00:22→20:29)
[2019-03-14] MEDS: METOCLOPRAMIDE HCL 10MG/2ML VIAL IV SCH ×4 (05:48→23:47)
[2019-03-14] MEDS: INSULIN LISPRO 100 UNITS/ML SUBCUT SCH ×4 (07:30→20:37)
[2019-03-14] MEDS: BLOOD SUGAR DIAGNOSTIC STRIP TEST SCH ×4 (08:01→20:37)
[2019-03-14] MEDS: AMLODIPINE 2.5MG TABLET PO SCH ×2 (09:16→20:39)
[2019-03-14] MEDS: FAMOTIDINE 20MG/2ML VIAL IV SCH (09:16)
[2019-03-14] MEDS: METHYLPREDNISOLONE SOD SUCC 40 MG/ML VIAL IV SCH (09:16)
[2019-03-14] MEDS: LOSARTAN POTASSIUM 50 MG TABLET PO SCH (09:17)
[2019-03-14] MEDS: METOPROLOL TARTRATE 25MG TABLET PO SCH ×2 (09:17→20:38)
[2019-03-14 09:28] LABS: CHLORIDE 115 mEq/L (98-107)
[2019-03-14 09:37] LABS: EOSINOPHILS % 2.3 % (0.0-5.0); HEMATOCRIT. 27.4 % (42.0-52.0); HEMOGLOBIN. 9.4 g/dL (14.0-18.0); LYMPHOCYTES % 12.6 % (20.0-50.0); MEAN CORPUSCULAR HEMOGLOBIN 34.3 pg (28.0-32.0); MEAN CORPUSCULAR VOLUME 100.3 fL (80.0-94.0); MEAN PLATELET VOLUME 9.9 fl (7.4-10.4); MONOCYTES % 10.3 % (2.0-8.0); NEUTROPHILS % 74.8 % (40.0-76.0); PLATELET 84 x1000/uL (130-400); RED BLOOD CELL COUNT 2.73 mill/uL (4.7-6.1); RED CELL DISTRIBUTION WIDTH 14.5 % (11.6-14.6)
[2019-03-14] MEDS: POTASSIUM CHLORIDE 20MEQ TABLET SR PO SCH ×2 (13:26→17:22)
[2019-03-14] MEDS: CEFTRIAXONE 1 G PREMIX 50 ML IV SCH (20:37)
[2019-03-14] MEDS ORDERED: LEVOFLOXACIN 250MG PREMIX 50 ML IV SCH ×2 (21:00)
[2019-03-14] MEDS: LEVOFLOXACIN 250MG PREMIX 50 ML IV SCH (22:42)
[2019-03-15] VITALS (12 sets, daily range): BP systolic 99–139; BP diastolic 45–75
[2019-03-15] MEDS: IPRATROPIUM/ALBUTEROL 0.5-3(2.5)MG/3ML NEB HHN SCH ×6 (00:23→20:46)
[2019-03-15] MEDS: METOCLOPRAMIDE HCL 10MG/2ML VIAL IV SCH (05:25)
[2019-03-15 06:30] LABS: CHLORIDE 116 mEq/L (98-107)
[2019-03-15 06:37] LABS: BASOPHILS % 0.1 % (0.0-2.0); EOSINOPHILS % 1.6 % (0.0-5.0); HEMATOCRIT. 26.2 % (42.0-52.0); LYMPHOCYTES % 10.6 % (20.0-50.0); MEAN CORPUSCULAR HEMOGLOBIN 34.8 pg (28.0-32.0); MEAN CORPUSCULAR VOLUME 100.9 fL (80.0-94.0); MEAN PLATELET VOLUME 9.7 fl (7.4-10.4); MONOCYTES % 7.8 % (2.0-8.0); NEUTROPHILS % 79.9 % (40.0-76.0); PLATELET 86 x1000/uL (130-400); RED CELL DISTRIBUTION WIDTH 14.3 % (11.6-14.6)
[2019-03-15] MEDS: BLOOD SUGAR DIAGNOSTIC STRIP TEST SCH ×4 (08:24→21:00)
[2019-03-15] MEDS: INSULIN LISPRO 100 UNITS/ML SUBCUT SCH ×4 (08:24→21:00)
[2019-03-15] MEDS: METHYLPREDNISOLONE SOD SUCC 40 MG/ML VIAL IV SCH (08:42)
[2019-03-15] MEDS: FAMOTIDINE 20MG/2ML VIAL IV SCH (08:42)
[2019-03-15] MEDS: METOPROLOL TARTRATE 25MG TABLET PO SCH ×2 (08:42→20:40)
[2019-03-15] MEDS: AMLODIPINE 2.5MG TABLET PO SCH ×2 (08:43→20:40)
[2019-03-15] MEDS: LOSARTAN POTASSIUM 50 MG TABLET PO SCH (08:44)
[2019-03-15] MEDS: METOCLOPRAMIDE HCL 10MG TABLET PO SCH ×3 (12:55→23:47)
[2019-03-15] MEDS: CEFTRIAXONE 1 G PREMIX 50 ML IV SCH (20:39)
[2019-03-15] MEDS: DIPHENHYDRAMINE 50MG/ML VIAL IV PRN (22:06)
[2019-03-15] MEDS ORDERED: ONDANSETRON HCL 4MG/2ML INJ ONE (23:44)
[2019-03-15] MEDS: LEVOFLOXACIN 250MG PREMIX 50 ML IV SCH (23:45)
[2019-03-16] VITALS (21 sets, daily range): BP systolic 93–150; BP diastolic 33–108
[2019-03-16] MEDS: IPRATROPIUM/ALBUTEROL 0.5-3(2.5)MG/3ML NEB HHN SCH ×4 (00:38→21:25)
[2019-03-16] MEDS: DIPHENHYDRAMINE 50MG/ML VIAL IV PRN ×2 (01:37→05:08)
[2019-03-16] MEDS: METOCLOPRAMIDE HCL 10MG TABLET PO SCH ×3 (05:04→18:38)
[2019-03-16] MEDS: INSULIN LISPRO 100 UNITS/ML SUBCUT SCH ×4 (07:30→20:39)
[2019-03-16 07:56] LABS: EOSINOPHILS % 2.5 % (0.0-5.0); HEMATOCRIT. 28.1 % (42.0-52.0); HEMOGLOBIN. 9.5 g/dL (14.0-18.0); LYMPHOCYTES % 9.2 % (20.0-50.0); MEAN CORPUSCULAR VOLUME 100.2 fL (80.0-94.0); MEAN PLATELET VOLUME 9.6 fl (7.4-10.4); MONOCYTES % 8.1 % (2.0-8.0); NEUTROPHILS % 80.2 % (40.0-76.0); PLATELET 87 x1000/uL (130-400); RED BLOOD CELL COUNT 2.81 mill/uL (4.7-6.1); RED CELL DISTRIBUTION WIDTH 14.3 % (11.6-14.6)
[2019-03-16] MEDS: BLOOD SUGAR DIAGNOSTIC STRIP TEST SCH ×4 (08:01→20:39)
[2019-03-16 08:08] LABS: CHLORIDE 112 mEq/L (98-107)
[2019-03-16] MEDS: FAMOTIDINE 20MG/2ML VIAL IV SCH (10:34)
[2019-03-16] MEDS: METHYLPREDNISOLONE SOD SUCC 40 MG/ML VIAL IV SCH (10:34)
[2019-03-16] MEDS: METOPROLOL TARTRATE 25MG TABLET PO SCH ×2 (10:35→20:35)
[2019-03-16] MEDS: LOSARTAN POTASSIUM 50 MG TABLET PO SCH (10:35)
[2019-03-16] MEDS: AMLODIPINE 2.5MG TABLET PO SCH ×2 (10:35→20:35)
[2019-03-17] VITALS (11 sets, daily range): BP systolic 94–140; BP diastolic 42–72
[2019-03-17] MEDS: METOCLOPRAMIDE HCL 10MG TABLET PO SCH ×4 (00:20→17:25)
[2019-03-17] MEDS: IPRATROPIUM/ALBUTEROL 0.5-3(2.5)MG/3ML NEB HHN SCH ×5 (00:57→16:55)
[2019-03-17 06:27] LABS: BASOPHILS % 0.1 % (0.0-2.0); EOSINOPHILS % 2.5 % (0.0-5.0); HEMATOCRIT. 27.4 % (42.0-52.0); HEMOGLOBIN. 9.4 g/dL (14.0-18.0); LYMPHOCYTES % 15.8 % (20.0-50.0); MEAN CORPUSCULAR VOLUME 99.5 fL (80.0-94.0); MEAN PLATELET VOLUME 9.6 fl (7.4-10.4); MONOCYTES % 9.2 % (2.0-8.0); NEUTROPHILS % 72.4 % (40.0-76.0); PLATELET 87 x1000/uL (130-400); RED BLOOD CELL COUNT 2.75 mill/uL (4.7-6.1); RED CELL DISTRIBUTION WIDTH 14.3 % (11.6-14.6)
[2019-03-17 06:28] LABS: CHLORIDE 113 mEq/L (98-107)
[2019-03-17] MEDS: INSULIN LISPRO 100 UNITS/ML SUBCUT SCH ×3 (07:30→17:25)
[2019-03-17] MEDS: BLOOD SUGAR DIAGNOSTIC STRIP TEST SCH ×3 (07:45→17:25)
[2019-03-17] MEDS: AMLODIPINE 2.5MG TABLET PO SCH (09:00)
[2019-03-17] MEDS: METOPROLOL TARTRATE 25MG TABLET PO SCH (09:00)
[2019-03-17] MEDS ORDERED: POTASSIUM CHLORIDE 20MEQ TABLET SR PO SCH (09:00)
[2019-03-17] MEDS: METHYLPREDNISOLONE SOD SUCC 40 MG/ML VIAL IV SCH (09:01)
[2019-03-17] MEDS: FAMOTIDINE 20MG/2ML VIAL IV SCH (09:01)
[2019-03-17] MEDS: LOSARTAN POTASSIUM 50 MG TABLET PO SCH (09:02)
[2019-03-18] MEDS ORDERED: FAMOTIDINE 20MG TABLET PO SCH (09:00)
== END 2019-03-17 19:36 | DRG 25 ==
LOC: ER 07:17 → MICUNO 11:47 → EDBEDREQTM 11:57 → ENRESERV 12:03 → 5EST 03-13 22:59
PROVIDERS: ADMIT Internal Medicine; ATTEND Internal Medicine
PROC: 30233N1 Transfusion of Nonautologous Red Blood Cells into Peripheral Vein, Percutaneous Approach (ICD-10-PCS; 2019-02-26)
PROC: 00C40ZZ Extirpation of Matter from Intracranial Subdural Space, Open Approach (ICD-10-PCS; principal; 2019-03-01)
PROC: 0NU007Z Supplement Skull with Autologous Tissue Substitute, Open Approach (ICD-10-PCS; 2019-03-01)
PROC: 4A107BD Monitoring of Intracranial Pressure, Via Natural or Artificial Opening (ICD-10-PCS; 2019-03-01)
PROC: 02HV33Z Insertion of Infusion Device into Superior Vena Cava, Percutaneous Approach (ICD-10-PCS; 2019-03-04)
PROC: B548ZZA Ultrasonography of Superior Vena Cava, Guidance (ICD-10-PCS; 2019-03-04)
DX: S06.5X9A Traumatic subdural hemorrhage with loss of consciousness of unspecified duration, initial encounter (principal); G82.50 Quadriplegia, unspecified; G93.40 Encephalopathy, unspecified; C82.90 Follicular lymphoma, unspecified, unspecified site; I42.9 Cardiomyopathy, unspecified; D61.818 Other pancytopenia; E46 Unspecified protein-calorie malnutrition; E87.0 Hyperosmolality and hypernatremia; K59.39 Other megacolon; N17.9 Acute kidney failure, unspecified; K56.0 Paralytic ileus; I73.9 Peripheral vascular disease, unspecified; N18.9 Chronic kidney disease, unspecified; H40.9 Unspecified glaucoma; G62.9 Polyneuropathy, unspecified; N35.919 Unspecified urethral stricture, male, unspecified site; K57.90 Diverticulosis of intestine, part unspecified, without perforation or abscess without bleeding; R40.20 Unspecified coma; E78.5 Hyperlipidemia, unspecified; D53.9 Nutritional anemia, unspecified; E77.8 Other disorders of glycoprotein metabolism; E87.6 Hypokalemia; J44.9 Chronic obstructive pulmonary disease, unspecified; Z68.22 Body mass index [BMI] 22.0-22.9, adult; D46.9 Myelodysplastic syndrome, unspecified; G93.89 Other specified disorders of brain; I25.10 Atherosclerotic heart disease of native coronary artery without angina pectoris; K57.30 Diverticulosis of large intestine without perforation or abscess without bleeding; S00.12XA Contusion of left eyelid and periocular area, initial encounter; W18.39XA Other fall on same level, initial encounter; I13.10 Hypertensive heart and chronic kidney disease without heart failure, with stage 1 through stage 4 chronic kidney disease, or unspecified chronic kidney disease; E87.5 Hyperkalemia; R09.02 Hypoxemia; Z74.01 Bed confinement status; Z78.1 Physical restraint status; Z82.49 Family history of ischemic heart disease and other diseases of the circulatory system; Z85.46 Personal history of malignant neoplasm of prostate; Z86.73 Personal history of transient ischemic attack (TIA), and cerebral infarction without residual deficits; Z91.19 Patient's noncompliance with other medical treatment and regimen; Z88.8 Allergy status to other drugs, medicaments and biological substances; Z79.899 Other long term (current) drug therapy; Y93.89 Activity, other specified; Y92.89 Other specified places as the place of occurrence of the external cause; Y99.8 Other external cause status
CPT/HCPCS: 36415; 36600; 71045; 74018; 74176; 76937; 80048; 80076; 81003; 82040; 82375; 82805; 82962; 83735; 83880; 84100; 84132; 84134; 84300; 84443; 84478; 84484; 86850; 86900; 86920; 86945; 88305; 92523; 92610; 93005; 93306; 93970; 93971; 94640; 96374; 97112; 97163; 97167; 97530; 97535; 99291; C1713; C1725; C1758; J0330; J0690; J0696; J1100; J1200; J1815; J1940; J1953; J1956; J2150; J2250; J2270; J2370; J2405; J2704; J2710; J2765; J2920; J3010; J3430; J3480; J3490; J7050; J7060; J7120; J7121; J7620; J8597; P9034; Q9963; A4315

== ENCOUNTER 2019-05-06 12:30 | Emergency (ER) | payer MEDICAID, MEDICARE ==
[~2019-05-06] VITALS: Ht 185.4 cm; Wt 86.0 kg
[~2019-05-06 12:30] MED LIST changes: +ASCO-339 PO; +CALC-1121 PO; -CLOP75TA33 PO; +CYAN50003 PO; +MAGN200T4 PO; +POTA-79 PO; +PROP15DR56 OP
[2019-05-06] MEDS ORDERED: SODIUM CHLORIDE 0.9% 1,000 ML IV ONE (12:47)
[2019-05-06 13:25] LABS: BASOPHILS % 0.4 % (0.0-2.0); EOSINOPHILS % 1.7 % (0.0-5.0); HEMATOCRIT. 35.1 % (42.0-52.0); HEMOGLOBIN. 11.7 g/dL (14.0-18.0); LYMPHOCYTES % 31.9 % (20.0-50.0); MEAN CORPUSCULAR HEMOGLOBIN 31.1 pg (28.0-32.0); MEAN CORPUSCULAR VOLUME 93.2 fL (80.0-94.0); MEAN PLATELET VOLUME 9.3 fl (7.4-10.4); MONOCYTES % 11.2 % (2.0-8.0); NEUTROPHILS % 54.8 % (40.0-76.0); PLATELET 100 x1000/uL (130-400); RED BLOOD CELL COUNT 3.77 mill/uL (4.7-6.1); RED CELL DISTRIBUTION WIDTH 16.9 % (11.6-14.6)
[2019-05-06 13:28] LABS: INR 1.1; PARTIAL THROMBOPLASTIN TIME 26.6 sec (23.4-31.0); PROTHROMBIN TIME 11.1 sec (9.6-11.0)
[2019-05-06 13:31] LABS: CLARITY URINE TURBID (CLEAR); COLOR URINE BLOODY (YELLOW); KETONES URINE NEGATIVE (NEGATIVE); LEUKOCYTE ESTERASE URINE 3+ (NEGATIVE); NITRITE URINE POSITIVE (NEGATIVE); OCCULT BLOOD URINE 3+ (NEGATIVE); PROTEIN URINE 3+ (NEGATIVE); SPECIFIC GRAVITY URINE 1.019 (1.005-1.030); UROBILINOGEN URINE 0.2 E.U./dL (0.2-1.0)
[2019-05-06] MEDS ORDERED: CEFTRIAXONE 1 G PREMIX 50 ML IV ONE (14:30)
[2019-05-06 14:36] LABS: CHLORIDE 107 mEq/L (98-107)
[2019-05-06 17:52] VITALS: BP 150/75
== END 2019-05-06 17:53 | disposition home or self-care (01) ==
LOC: ER 12:30
DX: R31.9 Hematuria, unspecified (principal); N39.0 Urinary tract infection, site not specified; D69.6 Thrombocytopenia, unspecified; D64.9 Anemia, unspecified; E88.09 Other disorders of plasma-protein metabolism, not elsewhere classified; N28.9 Disorder of kidney and ureter, unspecified; I10 Essential (primary) hypertension; Z79.899 Other long term (current) drug therapy
CPT/HCPCS: 36415; 80053; 81003; 85025; 85610; 85730; 86850; 86900; 86901; 87086; 96365; 96366; 99283; J0696; J7030

== ENCOUNTER 2019-06-12 02:56 | Emergency (ER) | payer MEDICARE ==
[~2019-06-12] VITALS: Ht 182.9 cm; Wt 100.0 kg
[2019-06-12 05:18] LABS: HEMOGLOBIN 8.9 g/dL (14.0-18.0); MEAN CORPUSCULAR HEMOGLOBIN 27.7 pg (28.0-32.0); MEAN CORPUSCULAR VOLUME 86.6 fL (80.0-94.0); PLATELET 88 x1000/uL (130-400); RED BLOOD CELL COUNT 3.23 mill/uL (4.7-6.1)
[2019-06-12 06:09] LABS: CLARITY URINE TURBID (CLEAR); KETONES URINE 2+ (NEGATIVE); LEUKOCYTE ESTERASE URINE 3+ (NEGATIVE); NITRITE URINE POSITIVE (NEGATIVE); OCCULT BLOOD URINE 3+ (NEGATIVE); PROTEIN URINE 3+ (NEGATIVE); SPECIFIC GRAVITY URINE 1.009 (1.005-1.030)
[2019-06-12 06:16] LABS: COLOR URINE BLOODY (YELLOW)
[2019-06-12 07:06] VITALS: BP 112/64
== END 2019-06-12 07:08 | disposition home or self-care (01) ==
LOC: ER 03:06
DX: R31.0 Gross hematuria (principal); D64.9 Anemia, unspecified; I10 Essential (primary) hypertension; Z79.899 Other long term (current) drug therapy
CPT/HCPCS: 36415; 51702; 81003; 85027; 99284; A4315

== ENCOUNTER 2019-07-17 16:51 | Emergency (ER) | payer MEDICARE, MEDICAID ==
[~2019-07-17] VITALS: Ht 180.3 cm; Wt 83.0 kg
[~2019-07-17 16:51] MED LIST changes: +ASPI-986 PO; +POTA20LI52 GT
[2019-07-17 17:59] LABS: BASOPHILS % 0.3 % (0.0-2.0); EOSINOPHILS % 1.4 % (0.0-5.0); HEMATOCRIT. 31.5 % (42.0-52.0); HEMOGLOBIN. 9.9 g/dL (14.0-18.0); LYMPHOCYTES % 19.7 % (20.0-50.0); MEAN CORPUSCULAR HEMOGLOBIN 27.1 pg (28.0-32.0); MEAN CORPUSCULAR VOLUME 85.7 fL (80.0-94.0); MEAN PLATELET VOLUME 8.4 fl (7.4-10.4); MONOCYTES % 10.4 % (2.0-8.0); NEUTROPHILS % 68.2 % (40.0-76.0); PLATELET 131 x1000/uL (130-400); RED BLOOD CELL COUNT 3.67 mill/uL (4.7-6.1); RED CELL DISTRIBUTION WIDTH 20.1 % (11.6-14.6)
[2019-07-17 18:02] LABS: CHLORIDE 108 mEq/L (98-107)
[2019-07-17 18:57] LABS: CLARITY URINE TURBID (CLEAR); COLOR URINE RED (YELLOW); KETONES URINE NEGATIVE (NEGATIVE); LEUKOCYTE ESTERASE URINE 3+ (NEGATIVE); NITRITE URINE POSITIVE (NEGATIVE); OCCULT BLOOD URINE 2+ (NEGATIVE); PROTEIN URINE 2+ (NEGATIVE); SPECIFIC GRAVITY URINE 1.017 (1.005-1.030); UROBILINOGEN URINE 0.2 E.U./dL (0.2-1.0)
[2019-07-17] MEDS ORDERED: INSULIN REGULAR (HUMULIN R) 300UNITS/3ML SUBCUT ONE (20:00)
[2019-07-17 20:28] VITALS: BP 124/72
== END 2019-07-17 20:37 | disposition home or self-care (01) ==
LOC: EDBD → MERGE 16:51 → ER 16:51
DX: N39.0 Urinary tract infection, site not specified (principal); R31.9 Hematuria, unspecified; I10 Essential (primary) hypertension; Z79.899 Other long term (current) drug therapy; Z79.82 Long term (current) use of aspirin; Z87.438 Personal history of other diseases of male genital organs; Z98.890 Other specified postprocedural states
CPT/HCPCS: 36415; 81003; 87077; 87186; 99283

== ENCOUNTER 2020-01-01 07:48 | Emergency (ER) | payer MEDICARE, MEDICAID ==
[~2020-01-01] VITALS: Ht 177.8 cm; Wt 81.0 kg
[~2020-01-01 07:48] MED LIST changes: +SIMV-43 PO; -SIMV20TA6 PO
[2020-01-01] MEDS ORDERED: SODIUM CHLORIDE 0.9% 1,000 ML IV ONE (08:19)
[2020-01-01 08:58] LABS: BASOPHILS % 0.3 % (0.0-2.0); EOSINOPHILS % 4.3 % (0.0-5.0); HEMATOCRIT. 37.3 % (42.0-52.0); LYMPHOCYTES % 27.3 % (20.0-50.0); MEAN CORPUSCULAR HEMOGLOBIN 37.5 pg (28.0-32.0); MEAN CORPUSCULAR VOLUME 107.6 fL (80.0-94.0); MEAN PLATELET VOLUME 8.8 fl (7.4-10.4); NEUTROPHILS % 57.1 % (40.0-76.0); PLATELET 86 x1000/uL (130-400); RED BLOOD CELL COUNT 3.46 mill/uL (4.7-6.1); RED CELL DISTRIBUTION WIDTH 14.2 % (11.6-14.6)
[2020-01-01 09:04] LABS: CHLORIDE 105 mEq/L (98-107)
[2020-01-01 09:12] LABS: CLARITY URINE TURBID (CLEAR); COLOR URINE YELLOW (YELLOW); KETONES URINE NEGATIVE (NEGATIVE); LEUKOCYTE ESTERASE URINE 3+ (NEGATIVE); NITRITE URINE NEGATIVE (NEGATIVE); OCCULT BLOOD URINE 2+ (NEGATIVE); PH URINE >=9.0 (4.5-8.0); PROTEIN URINE 2+ (NEGATIVE); SPECIFIC GRAVITY URINE 1.012 (1.005-1.030)
[2020-01-01] MEDS ORDERED: CEFTRIAXONE 1 G PREMIX 50 ML IV NR (09:30)
[2020-01-01 10:15] VITALS: BP 125/80
== END 2020-01-01 10:29 | disposition home or self-care (01) ==
LOC: ER 07:48
DX: N39.0 Urinary tract infection, site not specified (principal); I10 Essential (primary) hypertension; Z79.899 Other long term (current) drug therapy; Z88.8 Allergy status to other drugs, medicaments and biological substances
CPT/HCPCS: 36415; 80053; 81003; 85025; 87086; 96374; 99283; J0696; J7030

== ENCOUNTER 2020-02-06 08:07 | Emergency (ER) | payer MEDICARE, MEDICAID ==
[~2020-02-06] VITALS: Ht 165.1 cm; Wt 84.0 kg
[2020-02-06 08:19] VITALS: BP 177/86
[2020-02-06 09:35] LABS: CLARITY URINE TURBID (CLEAR); COLOR URINE YELLOW (YELLOW); KETONES URINE NEGATIVE (NEGATIVE); LEUKOCYTE ESTERASE URINE 3+ (NEGATIVE); NITRITE URINE NEGATIVE (NEGATIVE); OCCULT BLOOD URINE 2+ (NEGATIVE); PH URINE >=9.0 (4.5-8.0); PROTEIN URINE 2+ (NEGATIVE); SPECIFIC GRAVITY URINE 1.014 (1.005-1.030); UROBILINOGEN URINE 0.2 E.U./dL (0.2-1.0)
[2020-04-26] MEDS ORDERED: SENN-170 MT (13:59)
[2020-04-26] MEDS ORDERED: MIDO5TAB4 PO (13:59)
[2020-04-26] MEDS ORDERED: FERR325T23 PO (13:59)
[2020-04-26] MEDS ORDERED: DOCU-150 PO (13:59)
[2020-04-26] MEDS ORDERED: KEPP250 PO (13:59)
[2020-04-26] MEDS ORDERED: MOM PO (13:59)
[2020-04-26] MEDS ORDERED: QUET25TA PO ×2 (13:59)
[2020-04-26] MEDS ORDERED: MYL30 PO (13:59)
[2020-04-26] MEDS ORDERED: ASPI-1497 MT (14:04)
== END 2020-02-06 15:46 | disposition home or self-care (01) ==
LOC: ER 08:07
DX: N39.0 Urinary tract infection, site not specified (principal); R31.0 Gross hematuria
CPT/HCPCS: 81003; 99283

== ENCOUNTER 2020-11-15 10:45 | Emergency (ER) | payer MEDICARE, MEDICAID ==
[~2020-11-15] VITALS: Ht 165.1 cm; Wt 69.0 kg
[~2020-11-15 10:45] MED LIST changes: +ASPI-1497 MT; -ASPI-986 PO; +DOCU-150 PO; +FERR325T23 PO; +KEPP250 PO; +LATA2.5D14 OP; -LATA2.5D2 OP; -LOSA1TAB40 PO; +MIDO5TAB4 PO; +MOM PO; +MYL30 PO; -POTA-79 PO; -POTA20LI52 GT; +QUET25TA PO; +SENN-257 MT
[2020-11-15 11:30] VITALS: BP 133/65
[2020-11-15 11:56] LABS: BASOPHILS % 0.2 % (0.0-2.0); CLARITY URINE CLEAR (CLEAR); COLOR URINE YELLOW (YELLOW); EOSINOPHILS % 3.1 % (0.0-5.0); HEMATOCRIT. 32.7 % (42.0-52.0); HEMOGLOBIN. 11.1 g/dL (14.0-18.0); KETONES URINE NEGATIVE (NEGATIVE); LEUKOCYTE ESTERASE URINE 3+ (NEGATIVE); LYMPHOCYTES % 25.2 % (20.0-50.0); MEAN CORPUSCULAR VOLUME 103.6 fL (80.0-94.0); MEAN PLATELET VOLUME 8.2 fl (7.4-10.4); NEUTROPHILS % 60.5 % (40.0-76.0); NITRITE URINE NEGATIVE (NEGATIVE); OCCULT BLOOD URINE TRACE (NEGATIVE); PH URINE 6.5 (4.5-8.0); PLATELET 93 x1000/uL (130-400); PROTEIN URINE 1+ (NEGATIVE); RED BLOOD CELL COUNT 3.16 mill/uL (4.7-6.1); RED CELL DISTRIBUTION WIDTH 13.6 % (11.6-14.6); SPECIFIC GRAVITY URINE 1.014 (1.005-1.030); UROBILINOGEN URINE 0.2 E.U./dL (0.2-1.0)
[2020-11-15 12:00] LABS: CHLORIDE 106 mEq/L (98-107)
[2020-11-15] MEDS ORDERED: CEPH500C2 MT (12:01)
[2020-11-15] MEDS ORDERED: TAMS-11 MT (12:01)
[2020-11-15 12:05] LABS: PROTHROMBIN TIME 11.1 sec (9.6-11.0)
== END 2020-11-15 12:53 | disposition home or self-care (01) ==
LOC: ER 10:45
DX: N30.00 Acute cystitis without hematuria (principal); N40.0 Benign prostatic hyperplasia without lower urinary tract symptoms; I11.0 Hypertensive heart disease with heart failure; I50.9 Heart failure, unspecified; Z79.82 Long term (current) use of aspirin
CPT/HCPCS: 36415; 80053; 81003; 85025; 93005; 99284

== ENCOUNTER 2021-01-02 10:57 | Emergency (ER) | payer MEDICARE, MEDICAID ==
[~2021-01-02] VITALS: Ht 175.3 cm; Wt 82.0 kg
[~2021-01-02 10:57] MED LIST changes: +CEPH500C2 MT; +TAMS-11 MT
[2021-01-02 13:24] LABS: CLARITY URINE CLOUDY (CLEAR); COLOR URINE YELLOW (YELLOW); KETONES URINE NEGATIVE (NEGATIVE); LEUKOCYTE ESTERASE URINE 3+ (NEGATIVE); NITRITE URINE NEGATIVE (NEGATIVE); OCCULT BLOOD URINE 1+ (NEGATIVE); PH URINE 7.5 (4.5-8.0); PROTEIN URINE 1+ (NEGATIVE); SPECIFIC GRAVITY URINE 1.015 (1.005-1.030)
[2021-01-02 14:55] VITALS: BP 146/89
[2021-01-02] MEDS ORDERED: NITR-87 MT (15:00)
[2021-01-02] MEDS ORDERED: PYR200 MT (15:00)
== END 2021-01-02 17:30 | disposition home or self-care (01) ==
LOC: ER 12:15
DX: N39.0 Urinary tract infection, site not specified (principal); I11.0 Hypertensive heart disease with heart failure; I50.9 Heart failure, unspecified
CPT/HCPCS: 81003; 82962; 99283

== ENCOUNTER 2021-04-02 16:33 | Inpatient (IN) | payer MEDICARE, MEDICAID ==
[~2021-04-02] VITALS: Ht 172.7 cm; Wt 75.0 kg
[~2021-04-02 16:33] MED LIST changes: +NITR-87 MT; +PYR200 MT
[2021-04-02 19:14] LABS: BASOPHILS % 0.3 % (0.0-2.0); EOSINOPHILS % 1.7 % (0.0-5.0); HEMATOCRIT. 36.7 % (42.0-52.0); HEMOGLOBIN. 12.6 g/dL (14.0-18.0); LYMPHOCYTES % 18.5 % (20.0-50.0); MEAN CORPUSCULAR HEMOGLOBIN 35.7 pg (28.0-32.0); MEAN CORPUSCULAR VOLUME 103.7 fL (80.0-94.0); NEUTROPHILS % 68.5 % (40.0-76.0); PLATELET 130 x1000/uL (130-400); RED BLOOD CELL COUNT 3.54 mill/uL (4.7-6.1)
[2021-04-02 19:20] LABS: CHLORIDE 108 mEq/L (98-107)
[2021-04-02 19:26] LABS: CLARITY URINE CLEAR (CLEAR); COLOR URINE YELLOW (YELLOW); KETONES URINE NEGATIVE (NEGATIVE); LEUKOCYTE ESTERASE URINE 3+ (NEGATIVE); NITRITE URINE NEGATIVE (NEGATIVE); OCCULT BLOOD URINE NEGATIVE (NEGATIVE); PROTEIN URINE 1+ (NEGATIVE); SPECIFIC GRAVITY URINE 1.012 (1.005-1.030)
[2021-04-02 19:28] LABS: CREATINE KINASE 97 IU/L (39-308)
[2021-04-02] MEDS ORDERED: VANCOMYCIN 1 G PREMIX 200 ML IV NR (20:45)
[2021-04-02] MEDS ORDERED: CEFTRIAXONE 1 G PREMIX 50 ML IV NR (20:45)
[2021-04-03] MEDS ORDERED: LEVOFLOXACIN 500MG PREMIX 100 ML IV SCH ×2 (08:15→11:00)
[2021-04-03] MEDS ORDERED: ONDANSETRON HCL 4MG/2ML INJ IV PRN (08:15)
[2021-04-03] MEDS ORDERED: HYDROCODONE/ACETAMINOPHEN 5/325MG TABLET PO PRN (08:15)
[2021-04-03] MEDS ORDERED: VANCOMYCIN 1 G PREMIX 200 ML IV SCH (09:00)
[2021-04-03] MEDS ORDERED: NALOXONE HCL 0.4MG/ML VIAL IV PRN (15:15)
[2021-04-03] MEDS ORDERED: ENOXAPARIN 40MG/0.4ML SYR SUBCUT SCH (17:00)
[2021-04-03 19:10] VITALS: BP 147/81
[2021-04-04] MEDS ORDERED: LEVOFLOXACIN 250MG PREMIX 50 ML IV SCH (11:00)
== END 2021-04-03 19:19 | disposition home health service (06) | DRG 605 ==
LOC: ER 16:33 → EDBEDREQ 17:56 → EDBEDREQTM 23:45 → EDBEDREQSVC 23:45 → EDBEDREQ 23:45 → MICUSO 04-03 01:31
PROVIDERS: ADMIT Internal Medicine; ATTEND Internal Medicine
DX: S81.802A Unspecified open wound, left lower leg, initial encounter (principal); I50.32 Chronic diastolic (congestive) heart failure; I82.532 Chronic embolism and thrombosis of left popliteal vein; N39.0 Urinary tract infection, site not specified; E87.2 Acidosis; I11.0 Hypertensive heart disease with heart failure; E87.8 Other disorders of electrolyte and fluid balance, not elsewhere classified; D53.9 Nutritional anemia, unspecified; E80.6 Other disorders of bilirubin metabolism; X58.XXXA Exposure to other specified factors, initial encounter; Y93.89 Activity, other specified; Y92.89 Other specified places as the place of occurrence of the external cause; Y99.8 Other external cause status; Z20.822 Contact with and (suspected) exposure to COVID-19
CPT/HCPCS: 36415; 71045; 73610; 80053; 81003; 82550; 83605; 83880; 84145; 84484; 85025; 86140; 87070; 87077; 87186; 87426; 93005; 93970; 99291; J0696; J1956; J3370

== ENCOUNTER 2021-11-20 13:04 | Emergency (ER) | payer MEDICARE, MEDICAID ==
[~2021-11-20] VITALS: Ht 175.3 cm; Wt 70.0 kg
[2021-11-20 13:19] VITALS: BP 130/76
== END 2021-11-20 18:55 | disposition left against medical advice (07) ==
LOC: ER 14:19
DX: Z53.21 Procedure and treatment not carried out due to patient leaving prior to being seen by health care provider (principal)

== ENCOUNTER 2021-12-18 14:31 | Emergency (ER) | payer MEDICARE, MEDICAID ==
[~2021-12-18] VITALS: Ht 172.7 cm; Wt 75.0 kg
[2021-12-18 14:43] VITALS: BP 116/68
== END 2021-12-19 01:06 | disposition left against medical advice (07) ==
LOC: ER 14:31
DX: Z53.21 Procedure and treatment not carried out due to patient leaving prior to being seen by health care provider (principal)

== ENCOUNTER 2021-12-21 07:18 | Emergency (ER) | payer MEDICARE, MEDICAID ==
[~2021-12-21] VITALS: Ht 180.3 cm; Wt 77.0 kg
[2021-12-21 07:30] VITALS: BP 110/62
[2021-12-21] MEDS ORDERED: ACETAMINOPHEN 325MG TABLET PO ONE (08:00)
[2021-12-21] MEDS ORDERED: CEPHALEXIN 250MG CAPSULE PO ONE (09:30)
[2021-12-21] MEDS ORDERED: CEPH500T MT ×2 (09:33→09:35)
[2021-12-21 10:12] LABS: BASOPHILS % 0.3 % (0.0-2.0); EOSINOPHILS % 2.8 % (0.0-5.0); HEMATOCRIT. 32.5 % (42.0-52.0); LYMPHOCYTES % 17.9 % (20.0-50.0); MEAN CORPUSCULAR HEMOGLOBIN 31.7 pg (28.0-32.0); MEAN CORPUSCULAR VOLUME 93.8 fL (80.0-94.0); MEAN PLATELET VOLUME 8.2 fl (7.4-10.4); MONOCYTES % 9.8 % (2.0-8.0); NEUTROPHILS % 69.2 % (40.0-76.0); PLATELET 195 x1000/uL (130-400); RED BLOOD CELL COUNT 3.46 mill/uL (4.7-6.1); RED CELL DISTRIBUTION WIDTH 16.8 % (11.6-14.6)
== END 2021-12-21 10:33 | disposition home or self-care (01) ==
LOC: ER 07:23
DX: I83.029 Varicose veins of left lower extremity with ulcer of unspecified site (principal); I82.432 Acute embolism and thrombosis of left popliteal vein; I82.532 Chronic embolism and thrombosis of left popliteal vein; N28.9 Disorder of kidney and ureter, unspecified; D64.9 Anemia, unspecified; Z87.828 Personal history of other (healed) physical injury and trauma; Z79.01 Long term (current) use of anticoagulants
CPT/HCPCS: 36415; 73610; 80048; 85025; 93971; 99285

== ENCOUNTER 2022-09-05 13:26 | Emergency (ER) | payer MEDICARE, MEDICAID ==
[~2022-09-05] VITALS: Ht 182.9 cm; Wt 75.0 kg
[~2022-09-05 13:26] MED LIST changes: +CEPH500T MT
[2022-09-05 13:37] VITALS: BP 128/89
[2022-09-05] MEDS ORDERED: CEPH500C2 PO (16:59)
== END 2022-09-05 17:25 | disposition home or self-care (01) ==
LOC: ER 13:26
DX: L02.415 Cutaneous abscess of right lower limb (principal); Z79.899 Other long term (current) drug therapy
CPT/HCPCS: 10060; 99282

== ENCOUNTER 2023-06-03 03:10 | Emergency (ER) | payer MEDICAID, MEDICARE ==
[~2023-06-03] VITALS: Ht 177.8 cm; Wt 73.0 kg
[~2023-06-03 03:10] MED LIST changes: +CEPH500C2 PO; -CYAN50003 PO; +CYAN50007 PO
[2023-06-03 03:42] VITALS: O2SAT 96
[2023-06-03] MEDS ORDERED: TETANUS, DIPHTHERIA, PERTUSSIS VAC/PF 0.5ML (>10YR OLD) IM ONE (03:45)
[2023-06-03 04:21] LABS: BASOPHILS % 0.1 % (0.0-2.0); DIFFERENTIAL COMMENT 0; EOSINOPHILS % 0.1 % (0.0-5.0); HEMATOCRIT. 36.1 % (42.0-52.0); HEMOGLOBIN. 12.1 g/dL (14.0-18.0); LYMPHOCYTES % 11.3 % (20.0-50.0); MEAN CORPUSCULAR HEMOGLOBIN 35.6 pg (28.0-32.0); MEAN CORPUSCULAR HGB CONC 33.6 g/dL (31.0-37.0); MEAN PLATELET VOLUME 8.4 fl (7.4-10.4); NEUTROPHILS % 79.5 % (40.0-76.0); PLATELET 85 x1000/uL (130-400); RED BLOOD CELL COUNT 3.41 mill/uL (4.7-6.1); RED CELL DISTRIBUTION WIDTH 15.8 % (11.6-14.6); WHITE BLOOD COUNT 5.1 x1000/uL (4.5-11.0)
[2023-06-03 04:47] LABS: CHLORIDE 109 mEq/L (98-107); INDEX HEMOLYSI 1 (1-3); INDEX ICTERIC 2 (1-4); INDEX LIPEMIC 1 (1-3); POTASSIUM 4.9 mEq/L (3.5-5.1); SODIUM 143 mEq/L (136-145)
[2023-06-03 04:56] LABS: ALANINE AMINOTRANSFERASE 26 IU/L (13-61); ASPARTATE AMINOTRANSFERASE 129 IU/L (15-37); BILIRUBIN TOTAL 3.7 mg/dL (0.1-1.0); CALCIUM 8.7 mg/dL (8.5-10.1); CARBON DIOXIDE 27 mEq/L (21-32); CREATININE 2.4 mg/dL (0.6-1.3); ETHANOL BLOOD < 10 mg/dL (<10); GLUCOSE 104 mg/dL (70-105); PROTEIN TOTAL 8.6 g/dL (6.0-8.3); UREA NITROGEN BLOOD 36 mg/dL (7-21)
[2023-06-03 05:34] LABS: TROPONIN I HIGH SENSITIVITY 82 ng/L (<78)
[2023-06-03 05:55] LABS: CLARITY URINE CLEAR (CLEAR); COLOR URINE DARK YELLOW (YELLOW); GLUCOSE URINE NEGATIVE (NEGATIVE); KETONES URINE TRACE (NEGATIVE); LEUKOCYTE ESTERASE URINE TRACE (NEGATIVE); NITRITE URINE NEGATIVE (NEGATIVE); OCCULT BLOOD URINE 1+ (NEGATIVE); PH URINE 6.5 (4.5-8.0); PROTEIN URINE 1+ (NEGATIVE); SPECIFIC GRAVITY URINE 1.014 (1.005-1.030)
[2023-06-03 05:57] LABS: BACTERIA URINE 1+; SQUAMOUS EPITHELIAL CELL URINE 1+ /lpf (RARE/1+); YEAST URINE NONE SEEN
[2023-06-03 06:46] LABS: RBC URINE 0-2 /hpf (0-2)
[2023-06-03 07:34] LABS: *AMPHETAMINES SCREEN URINE NEGATIVE (NEGATIVE); *BARBITURATES SCREEN URINE NEGATIVE (NEGATIVE); *BENZODIAZEPINES SCREEN URINE NEGATIVE (NEGATIVE); *COCAINE SCREEN URINE NEGATIVE (NEGATIVE); CANNABINOID URINE SCREEN NEGATIVE (NEGATIVE); ECSTASY MDMA SCREEN URINE NEGATIVE (NEGATIVE); METHADONE URINE SCREEN NEGATIVE (NEGATIVE); OPIATES URINE SCREEN NEGATIVE (NEGATIVE); PHENCYCLIDINE URINE SCREEN NEGATIVE (NEGATIVE)
[2023-06-03 10:59] VITALS: BP 123/78; PULSE 78; RESP 18; TEMP 98.1
== END 2023-06-03 11:00 | disposition home or self-care (01) ==
LOC: ER 03:10
DX: S81.812A Laceration without foreign body, left lower leg, initial encounter (principal); S06.5XAA Traumatic subdural hemorrhage with loss of consciousness status unknown, initial encounter; Z98.890 Other specified postprocedural states; Z79.899 Other long term (current) drug therapy; X58.XXXA Exposure to other specified factors, initial encounter; Y93.89 Activity, other specified; Y92.89 Other specified places as the place of occurrence of the external cause; Y99.8 Other external cause status
CPT/HCPCS: 12004; 36415; 71045; 73590; 80053; 80305; 80320; 81003; 82962; 84443; 84484; 85025; 90471; 90715; 93005; 99285; G0480